=== PATIENT | male | born 1975 | race Caucasian/White ===

== ENCOUNTER 2020-01-23 21:52 | Emergency (ER) | payer OTHER ==
[2020-01-23 22:00] VITALS: BP 164/92
--- NOTE | 2020-01-23 22:11 | ED Physician Documentation ---
PD HPI GI BLEED - Stated complaint Stated Complaint: BLOOD IN STOOL - Chief complaint Chief Complaint: Abd Pain - History obtained from History obtained from: Patient - History of Present Illness Timing - onset: Last night Timing - details: Abrupt onset, Intermittant (episodic) Pain level max: 0 Pain level now: 0 Associated symptoms: BRBPR. No: Vomiting, Coffee ground emesis, Hematemesis, Maroon stool, Black/tarry stool, Diarrhea, Constipation, Abdominal pain, Fever, Dizzy Improved by: Other (no ameliorating factors) Worsened by: Other (no exacerbating factors) Similar symptoms before: Has not had sx before Recently seen: Not recently seen - Additional information Additional information: c/o BRBPR with small clots, episodic since last night. Denies h/o same although he has had ulcer diagnosed in the past on upper endoscopy (does not know location of ulcer, such as duodenal or stomach). Denies fever, denies any pain. Review of Systems Constitutional: denies: Fever Cardiac: reports: Reviewed and negative Respiratory: reports: Reviewed and negative GI: reports: Bloody / black stool. denies: Abdominal Pain, Abdominal Swelling, Nausea, Vomiting, Constipation, Diarrhea, Hematemesis PD PAST MEDICAL HISTORY - Past Medical History Cardiovascular: None Respiratory: None Endocrine/Autoimmune: HyPOthyroidism, Systemic lupus erythematosus GI: GERD Psych: Anxiety, Post traumatic stress disorder Musculoskeletal: Other (lupus and rheumatoid arthritis. ) - Past Surgical History Past Surgical History: Yes General: Cholecystectomy Ortho: Shoulder arthroplasty HEENT: Tonsil/Adenoidectomy - Present Medications Home Medications: Ambulatory Orders Medication Instructions Recorded Confirmed Levothyroxine [Synthroid] 25 mcg PO DAILY 04/05/15 04/05/15 Methocarbamol [Robaxin] 200 mg PO TID 04/05/15 04/05/15 Omeprazole 40 mg PO DAILY 04/05/15 04/05/15 Oxycodone HCl/Acetaminophen 2 tab PO Q4HR PRN 04/05/15 04/05/15 [Percocet 5-325 mg Tablet] Prazosin [Minipress] 1 tab PO QPM 04/05/15 04/05/15 Temazepam [Restoril] 30 mg PO QPM 04/05/15 04/05/15 - Allergies Allergies/Adverse Reactions: Allergies Allergy/AdvReac Type Severity Reaction Status Date / Time shellfish derived Allergy Itching Verified 01/23/20 21:57 - Social History Does the pt smoke?: Yes Smoking Status: Current every day smoker Does the pt drink ETOH?: Yes Does the pt have substance abuse?: No - Immunizations Immunizations are current?: Yes - POLST Patient has POLST: No PD ED PE NORMAL - Vitals Vital signs reviewed: Yes - General General: Alert and oriented X 3, No acute distress, Well developed/nourished - Cardiac Cardiac: RRR, No murmur - Respiratory Respiratory: No respiratory distress, Clear bilaterally - Abdomen Abdomen: Normal bowel sounds, Soft, Non tender, Non distended, No organomegaly - Derm Derm: Normal color, Warm and dry PD ED PE EXPANDED - Rectal Rectal: Heme Occult Pos - QC +, Normal Tone, Other (small amount gross blood). No: Mass, Hemorrhoid, Fissure Results - Vitals Vitals: Oxygen O2 Source Room air - Labs Labs: Microbiology 01/23/20 10:20 Occult Blood - Final Stool Laboratory Tests 01/23/20 01/23/20 01/23/20 22:02 22:02 22:02 WBC 7.6 RBC 5.11 Hgb 14.0 Hct 42.7 MCV 83.6 MCH 27.4 MCHC 32.8 RDW 14.7 Plt Count 308 MPV 10.0 Neut # (Auto) 3.7 Lymph # (Auto) 3.1 Angelina # (Auto) 0.5 Eos # (Auto) 0.2 Baso # (Auto) 0.1 Absolute Nucleated RBC 0.00 Nucleated RBC % 0.0 PT 12.0 INR 1.1 APTT 39.6 H Sodium 138 Potassium 3.3 L Chloride 101 Carbon Dioxide 25 Anion Gap 12.0 BUN 22 H Creatinine 1.0 Estimated GFR (MDRD) 82 L Glucose 106 H Calcium 9.3 Total Bilirubin 0.8 AST 51 H ALT 90 H Alkaline Phosphatase 63 Total Protein 8.1 Albumin 4.7 Globulin 3.4 Albumin/Globulin Ratio 1.4 Lipase 34 PD MEDICAL DECISION MAKING - ED course Complexity details: reviewed results, re-evaluated patient, considered differential, d/w patient Departure - Departure Disposition: 01 Home, Self Care Clinical Impression: Lower gastrointestinal bleeding Condition: Good Instructions: ED Hematochezia Stable Follow-Up: Guillermo Berrios MD [Primary Care Provider] - Discharge Date/Time: 01/23/20 23:40
[2020-01-23 22:35] LABS: BASOPHILS # (AUTO) 0.1 10^3/uL (0.0-0.1); BASOPHILS % (AUTO) 0.7 %; EOSINOPHILS # (AUTO) 0.2 10^3/uL (0.0-0.7); EOSINOPHILS % (AUTO) 2.1 %; LYMPHOCYTES # (AUTO) 3.1 10^3/uL (1.5-3.5); LYMPHOCYTES % (AUTO) 40.8 %; MEAN CORPUSCULAR HEMOGLOBIN 27.4 pg (27.0-31.0); MEAN CORPUSCULAR HGB CONC 32.8 g/dL (32.0-36.0); MEAN CORPUSCULAR VOLUME 83.6 fL (80.0-94.0); MONOCYTES # (AUTO) 0.5 10^3/uL (0.0-1.0); MONOCYTES % (AUTO) 6.9 %; NEUTROPHILS # (AUTO) 3.7 10^3/uL (1.5-6.6); NEUTROPHILS % (AUTO) 49.1 %; PLT - PLATELET COUNT 308 10^3/uL (130-450); RED BLOOD COUNT 5.11 10^6/uL (4.70-6.10); RED CELL DISTRIBUTION WIDTH 14.7 % (12.0-15.0); WHITE BLOOD COUNT 7.6 x10^3/uL (4.8-10.8)
[2020-01-23 22:41] LABS: INR 1.1 (0.8-1.2)
[2020-01-23 22:45] LABS: ALBUMIN 4.7 g/dL (3.2-5.5); ALBUMIN/GLOBULIN RATIO 1.4 (1.0-2.2); BILIRUBIN,TOTAL 0.8 mg/dL (0.2-1.0); CALCIUM 9.3 mg/dL (8.5-10.3); TOTAL PROTEIN 8.1 g/dL (6.7-8.2)
[2020-01-23 22:48] LABS: PARTIAL THROMBOPLASTIN TIME 39.6 secs (24.9-33.3)
== END 2020-01-23 23:40 | disposition home or self-care (01) ==
LOC: ED 21:52
DX: K92.1 Melena (principal); Z87.11 Personal history of peptic ulcer disease; M32.9 Systemic lupus erythematosus, unspecified; F17.200 Nicotine dependence, unspecified, uncomplicated
CPT/HCPCS: 36415; 80053; 82272; 83690; 85025; 85610; 85730; 99283; 99284

== ENCOUNTER 2020-12-30 07:24 | Outpatient (CLI) | payer OTHER ==
--- NOTE | 2020-12-30 13:15 | Ultrasound Report ---
PROCEDURE: Abdomen Limited INDICATIONS: ALT (SGPT) LEVEL RAISED TECHNIQUE: Real-time focused scanning was performed of the abdomen, with image documentation. COMPARISON: CT abdomen and pelvis dated 03/31/2020 FINDINGS: Limited evaluation of the proximal pancreas is grossly unremarkable. The liver is diffusely echogenic and enlarged measuring 22.7 cm in length. No focal abnormality. The gallbladder is not seen, likely surgically absent. The biliary system is nondilated. The common bile duct measures 6 mm. IMPRESSION: Findings of hepatomegaly and diffuse increased echogenicity suggestive of hepatic steatosis. Status post cholecystectomy. Reviewed by: Alexis Espino DO on 12/30/2020 12:13 PM YARA Approved by: Alexis Espino DO on 12/30/2020 12:13 PM YARA Station ID: [id number]
== END 2020-12-30 07:25 | disposition home or self-care (01) ==
LOC: DI 07:24
PROVIDERS: ATTEND Nurse Practitioner Family
DX: R16.0 Hepatomegaly, not elsewhere classified (principal); R93.2 Abnormal findings on diagnostic imaging of liver and biliary tract; Z90.49 Acquired absence of other specified parts of digestive tract

== ENCOUNTER 2020-12-30 07:29 | Outpatient (CLI) | payer OTHER ==
--- NOTE | 2021-01-07 15:27 | CT Report ---
PROCEDURE: LOWER EXTREMITY WO - LT INDICATIONS: LT KNEE PAIN TECHNIQUE: Noncontrast 3 mm axial sections acquired of the knee, with coronal and sagittal reformats. COMPARISON: None. FINDINGS: Image quality: Excellent. Bones: There is no fracture. Alignment is normal. Joint spaces are maintained. There are no suspicio us osseous lesions. Soft tissues: Trace joint effusion. No focal soft tissue abnormality. IMPRESSION: Trace joint effusion otherwise unremarkable CT of the knee without acute findings to explain patient' s symptoms. Reviewed by: Alexis Espino DO on 12/30/2020 12:18 PM YARA Approved by: Alexis Espino DO on 12/30/2020 12:18 PM YARA Station ID: [id number]
== END 2020-12-30 07:30 | disposition home or self-care (01) ==
LOC: DI 07:29
PROVIDERS: ATTEND Nurse Practitioner Family
DX: M25.462 Effusion, left knee (principal)

== ENCOUNTER 2020-12-30 07:31 | Outpatient (CLI) | payer OTHER ==
--- NOTE | 2020-12-30 13:17 | XRAY Report ---
PROCEDURE: Knee 3 View LT INDICATIONS: PAIN IN LEFT KNEE TECHNIQUE: 3 views of the left knee(s) were acquired. COMPARISON: None. FINDINGS: Bones: No fractures or dislocations. No suspicious bony lesions. Soft tissues: Trace small joint effusion. IMPRESSION: Trace joint effusion without evidence of an acute osseous abnormality. Reviewed by: Alexis Espino DO on 12/30/2020 12:16 PM YARA Approved by: Alexis Espino DO on 12/30/2020 12:16 PM YARA Station ID: [id number]
== END 2020-12-30 07:32 | disposition home or self-care (01) ==
LOC: DI 07:31
PROVIDERS: ATTEND Nurse Practitioner Family
DX: M25.462 Effusion, left knee (principal); R16.0 Hepatomegaly, not elsewhere classified; R93.2 Abnormal findings on diagnostic imaging of liver and biliary tract; Z90.49 Acquired absence of other specified parts of digestive tract

== ENCOUNTER 2021-04-21 09:48 | Outpatient (CLI) | payer OTHER ==
[2021-04-21 10:19] LABS: CHOL/HDL RATIO 5.4 (<5.0); CHOLESTEROL 166 mg/dL; HDL CHOLESTEROL 31 mg/dL; TRIGLYCERIDES 409 mg/dL
[2021-04-21 10:51] LABS: LDL CHOLESTEROL,DIRECT 66 mg/dL; LDLD/HDL RATIO 2.1 (<3.6)
== END 2021-04-21 09:49 | disposition home or self-care (01) ==
LOC: LAB 09:48
PROVIDERS: ATTEND Family Medicine
DX: E78.5 Hyperlipidemia, unspecified (principal)
CPT/HCPCS: 36415; 80061; 83721

== ENCOUNTER 2021-05-01 18:16 | Outpatient (CLI) | payer OTHER ==
[2021-05-01 18:39] LABS: BASOPHILS # (AUTO) 0.1 10^3/uL (0.0-0.1); BASOPHILS % (AUTO) 0.7 %; EOSINOPHILS # (AUTO) 0.1 10^3/uL (0.0-0.7); EOSINOPHILS % (AUTO) 1.7 %; HCT - HEMATOCRIT 44.7 % (42.0-52.0); HGB - HEMOGLOBIN 14.4 g/dL (14.0-18.0); LYMPHOCYTES # (AUTO) 2.6 10^3/uL (1.5-3.5); LYMPHOCYTES % (AUTO) 38.3 %; MEAN CORPUSCULAR HEMOGLOBIN 27.2 pg (27.0-31.0); MEAN CORPUSCULAR HGB CONC 32.2 g/dL (32.0-36.0); MEAN CORPUSCULAR VOLUME 84.5 fL (80.0-94.0); MEAN PLATELET VOLUME 10.2 fL (7.4-11.4); MONOCYTES # (AUTO) 0.4 10^3/uL (0.0-1.0); MONOCYTES % (AUTO) 6.4 %; NEUTROPHILS # (AUTO) 3.6 10^3/uL (1.5-6.6); NEUTROPHILS % (AUTO) 52.6 %; PLT - PLATELET COUNT 269 10^3/uL (130-450); RED BLOOD COUNT 5.29 10^6/uL (4.70-6.10); RED CELL DISTRIBUTION WIDTH 14.7 % (12.0-15.0); WHITE BLOOD COUNT 6.9 x10^3/uL (4.8-10.8)
[2021-05-01 19:08] LABS: CREATININE,URINE 89.6 mg/dL; MICROALBUM/CREATININE RATIO,UR 2.2 ug/mg (<30.0); MICROALBUMIN,URINE 0.2 mg/dL (0-300.0)
[2021-05-01 19:11] LABS: ALBUMIN 4.4 g/dL (3.2-5.5); ALBUMIN/GLOBULIN RATIO 1.5 (1.0-2.2); BILIRUBIN,TOTAL 0.6 mg/dL (0.2-1.0); CALCIUM 9.3 mg/dL (8.5-10.3); CREATININE 1.2 mg/dL (0.6-1.2); CRP - C-REACTIVE PROTEIN 2.2 mg/dL (0-1.0); POTASSIUM 3.5 mmol/L (3.5-5.0); TOTAL PROTEIN 7.3 g/dL (6.7-8.2)
[2021-05-01 19:23] LABS: THYROID STIMULATING HORMONE 2.83 uIU/mL (0.34-5.60)
[2021-05-01 20:44] LABS: ESTIMATED AVERAGE GLUCOSE 148 mg/dL (70-100); HEMOGLOBIN A1c% 6.8 % (4.27-6.07)
[2021-05-05 20:46] LABS: ANA PATTERN Nuclear, Nucleolar; ANA SCREEN POSITIVE (NEGATIVE)
== END 2021-05-01 18:17 | disposition home or self-care (01) ==
LOC: LAB 18:16
PROVIDERS: ATTEND Nurse Practitioner Family
DX: M54.5 Low back pain (principal); E55.9 Vitamin D deficiency, unspecified; M06.9 Rheumatoid arthritis, unspecified; I10 Essential (primary) hypertension; E03.9 Hypothyroidism, unspecified; E11.8 Type 2 diabetes mellitus with unspecified complications
CPT/HCPCS: 36415; 80053; 82043; 82306; 82570; 83036; 84443; 85025; 85651; 86038; 86140; 86200; 86812

== ENCOUNTER 2021-05-09 18:04 | Outpatient (CLI) | payer OTHER ==
--- NOTE | 2021-05-10 11:57 | XRAY Report ---
PROCEDURE: ThoracoLumbar 2 View INDICATIONS: CHRONIC BACK PAIN TECHNIQUE: 2 views acquired of the thoracolumbar spine. COMPARISON: None FINDINGS: Bones: No acute fractures or dislocations. Visualized inferior ribs appear intact. No suspicious b betty lesions. Minimal scattered degenerative change. Soft tissues: No suspicious soft tissue calcifications. Cholecystectomy clips. IMPRESSION: Minimal scattered degenerative change. Reviewed by: Ashley Kelly MD on 05/10/2021 11:56 AM PDT Approved by: Ashley Kelly MD on 05/10/2021 11:56 AM PDT Station ID: [id number]
--- NOTE | 2021-05-10 11:58 | XRAY Report ---
PROCEDURE: Lumbar Spine 2 View INDICATIONS: CHRONIC LOW BACK PAIN TECHNIQUE: 2 views of the lumbar spine were acquired. COMPARISON: None. FINDINGS: Bones: 5 [id number] vertebrae are present. There is multilevel trace retrolisthesis. There is moderate disc and foraminal narrowing noted at L5-S1. No vertebral body compression fractures. No vargas spicious bony lesions. Soft tissues: Overlying bowel gas pattern is normal. No suspicious soft tissue calcifications. IMPRESSION: Degenerative changes most notable at L5-S1. As clinically indicated, for further evaluat ion of foraminal narrowing or potential nerve root compression, MRI is recommended. Reviewed by: Ashley Kelly MD on 05/10/2021 11:56 AM PDT Approved by: Ashley Kelly MD on 05/10/2021 11:56 AM PDT Station ID: [id number]
== END 2021-05-09 18:05 | disposition home or self-care (01) ==
LOC: DI 18:04
PROVIDERS: ATTEND Nurse Practitioner Family
DX: M47.817 Spondylosis without myelopathy or radiculopathy, lumbosacral region (principal); M47.815 Spondylosis without myelopathy or radiculopathy, thoracolumbar region

== ENCOUNTER 2021-06-03 09:15 | Outpatient (CLI) | payer OTHER ==
--- NOTE | 2021-06-03 12:29 | MRI Report ---
PROCEDURE: Lumbar Spine W/O INDICATIONS: LOW BACK PAIN TECHNIQUE: Noncontrast sagittal T1 spin echo and T2 fast echo, sagittal STIR, axial T1 and T2 fast spin echo thr ough the lumbar spine. In cases with scoliosis, additional coronal T2 fast spin echo may be performe d. COMPARISON: None. FINDINGS: Image quality: Excellent. Alignment and Curvature: There is normal bony alignment. Bone Marrow: Marrow is of normal overall signal. No acute vertebral body compression fractures. Sc hmorl's node of the inferior endplate of T10. Spinal Cord: Conus medullaris terminates at the T12-L1 level. Visualized cord demonstrates normal s ignal and size. Paraspinous Soft Tissues: No paravertebral masses. T12-L1: Normal in appearance. L1-L2: Normal in appearance. L2-L3: Normal in appearance. L3-L4: Normal in appearance. L4-L5: Mild desiccation and diffuse bulge of the L4-5 disc. Mild bilateral foraminal stenosis. The central canal is patent. L5-S1: Normal in appearance. IMPRESSION: 1. Mild degenerative disc disease of L4-5 with a diffuse disc bulge causing mild bilateral foraminal stenosis. 2. Otherwise the remaining lumbar spine has no significant abnormality. Reviewed by: Amos Moon on 06/03/2021 12:28 PM PDT Approved by: Amos Moon on 06/03/2021 12:28 PM PDT Station ID: [id number]
== END 2021-06-03 09:16 | disposition home or self-care (01) ==
LOC: DI 09:15
PROVIDERS: ATTEND Nurse Practitioner Family
DX: M51.36 Other intervertebral disc degeneration, lumbar region (principal); M48.061 Spinal stenosis, lumbar region without neurogenic claudication

== ENCOUNTER 2021-07-12 10:18 | Outpatient (CLI) | payer OTHER ==
[2021-07-12 11:14] LABS: BASOPHILS # (AUTO) 0.1 10^3/uL (0.0-0.1); BASOPHILS % (AUTO) 0.9 %; EOSINOPHILS # (AUTO) 0.2 10^3/uL (0.0-0.7); EOSINOPHILS % (AUTO) 2.8 %; HGB - HEMOGLOBIN 15.2 g/dL (14.0-18.0); LYMPHOCYTES % (AUTO) 30.9 %; MEAN CORPUSCULAR HEMOGLOBIN 26.7 pg (27.0-31.0); MEAN CORPUSCULAR HGB CONC 32.3 g/dL (32.0-36.0); MEAN CORPUSCULAR VOLUME 82.6 fL (80.0-94.0); MEAN PLATELET VOLUME 9.5 fL (7.4-11.4); MONOCYTES # (AUTO) 0.4 10^3/uL (0.0-1.0); MONOCYTES % (AUTO) 6.2 %; NEUTROPHILS # (AUTO) 3.8 10^3/uL (1.5-6.6); NEUTROPHILS % (AUTO) 58.7 %; PLT - PLATELET COUNT 265 10^3/uL (130-450); RED BLOOD COUNT 5.69 10^6/uL (4.70-6.10); RED CELL DISTRIBUTION WIDTH 15.1 % (12.0-15.0); WHITE BLOOD COUNT 6.4 x10^3/uL (4.8-10.8)
[2021-07-12 11:31] LABS: ALBUMIN 4.7 g/dL (3.2-5.5); ALBUMIN/GLOBULIN RATIO 1.5 (1.0-2.2); BILIRUBIN,TOTAL 0.8 mg/dL (0.2-1.0); CALCIUM 9.5 mg/dL (8.5-10.3); CREATININE 1.1 mg/dL (0.6-1.2); CRP - C-REACTIVE PROTEIN 1.4 mg/dL (0-1.0); POTASSIUM 4.1 mmol/L (3.5-5.0); TOTAL PROTEIN 7.9 g/dL (6.7-8.2)
[2021-07-12 16:08] LABS: RHEUMATOID FACTOR NEGATIVE (Negative)
[2021-07-13 09:16] LABS: HEPATITIS B CORE AB TOTAL NON-REACTIVE (NON-REACTIVE); HEPATITIS C ANTIBODY NON-REACTIVE (NON-REACTIVE)
[2021-07-15 09:32] LABS: ANA SCREEN NEGATIVE (NEGATIVE)
[2021-07-15 14:12] LABS: NIL 0.03 IU/mL; TB2-NIL 0.02 IU/mL
[2021-07-16 18:42] LABS: CYCLIC CITRULL PEPTIDE CCP IGG <16 UNITS
== END 2021-07-12 10:19 | disposition home or self-care (01) ==
LOC: LAB 10:18
PROVIDERS: ATTEND Internal Medicine Rheumatology
DX: G89.29 Other chronic pain (principal); Z87.39 Personal history of other diseases of the musculoskeletal system and connective tissue; M79.641 Pain in right hand; M79.642 Pain in left hand; M79.671 Pain in right foot; M79.672 Pain in left foot; M54.50 Low back pain, unspecified
CPT/HCPCS: 36415; 80053; 81599; 85025; 85651; 86021; 86038; 86140; 86200; 86317; 86430; 86480; 86704; 86707; 86803; 86812

== ENCOUNTER 2021-08-05 12:31 | Outpatient (CLI) | payer OTHER ==
--- NOTE | 2021-08-05 14:52 | Ultrasound Report ---
PROCEDURE: Testicle INDICATIONS: TESTICULAR MASS TECHNIQUE: Real-time scanning was performed of the scrotum and testicles, with image documentation. Color and p ulse Doppler interrogation was performed of both testicles. COMPARISON: None. FINDINGS: Right: Testicle is normal in size at 4.3 x 2.5 x 3.3 cm, and homogenous in echotexture. Epididymis is normal in overall size and morphology. There is a small hydrocele. No varicocele. Overlying scrot al skin is normal in thickness. Small 2 mm epididymal head cysts. Left: Testicle is normal in size at cm, and homogeneous in echotexture. Epididymis is normal in overall size and morphology. There is a small hydrocele. No varicocele. Overlying scrotal skin is no rmal in thickness. Small 2 mm epididymal head cysts. Doppler: Color and pulse Doppler demonstrate normal and symmetric arterial flow in both testicles. IMPRESSION: 1. No testicular mass. 2. Small bilateral hydroceles and epididymal head cysts. Reviewed by: Amos Moon on 08/05/2021 1:51 PM MIGUEL ANGEL Approved by: Amos Moon on 08/05/2021 1:51 PM [facility] Station ID: [id number]
== END 2021-08-05 12:32 | disposition home or self-care (01) ==
LOC: DI 12:31
PROVIDERS: ATTEND Nurse Practitioner Family
DX: N43.3 Hydrocele, unspecified (principal); N50.3 Cyst of epididymis

== ENCOUNTER 2021-08-12 12:30 | Outpatient (CLI) | payer OTHER ==
[2021-08-12 22:24] LABS: ESTIMATED AVERAGE GLUCOSE 146 mg/dL (70-100); HEMOGLOBIN A1c% 6.7 % (4.27-6.07)
== END 2021-08-12 12:31 | disposition home or self-care (01) ==
LOC: LAB 12:30
PROVIDERS: ATTEND Nurse Practitioner Family
DX: E11.8 Type 2 diabetes mellitus with unspecified complications (principal)
CPT/HCPCS: 36415; 83036

== ENCOUNTER 2022-01-23 21:04 | Outpatient (CLI) | payer OTHER ==
--- NOTE | 2022-01-24 09:32 | XRAY Report ---
PROCEDURE: Cervical Spine 2 View INDICATIONS: NECK PAIN TECHNIQUE: 3 view(s) of the cervical spine were acquired. COMPARISON: None. FINDINGS: Bones: No fractures or dislocations to the T1 level. The lateral masses of C1 appear intact on the odontoid view. No suspicious bony lesions. Straightening of cervical lordosis. No significant spond ylitic changes. Soft tissues: No prevertebral soft tissue swelling. IMPRESSION: Cervical spine without acute fracture or traumatic malalignment. Straightening of cervic al lordosis may be related to patient positioning and/or concurrent muscle spasms. Reviewed by: Romain Vann MD on 01/24/2022 9:30 AM PDT Approved by: Romain Vann MD on 01/24/2022 9:30 AM PDT Station ID: [id number]
== END 2022-01-23 21:05 | disposition home or self-care (01) ==
LOC: DI 21:04
PROVIDERS: ATTEND Nurse Practitioner Family
DX: M54.2 Cervicalgia (principal)

== ENCOUNTER 2022-03-03 06:25 | Outpatient (CLI) | payer OTHER ==
[2022-03-03 06:59] LABS: ALBUMIN 4.5 g/dL (3.2-5.5); ALBUMIN/GLOBULIN RATIO 1.6 (1.0-2.2); BILIRUBIN,TOTAL 0.4 mg/dL (0.2-1.0); CALCIUM 10.1 mg/dL (8.5-10.3); CREATININE 1.2 mg/dL (0.6-1.2); POTASSIUM 4.2 mmol/L (3.5-5.0); TOTAL PROTEIN 7.4 g/dL (6.7-8.2)
[2022-03-03 07:09] LABS: CREATININE,URINE 101.4 mg/dL; MICROALBUM/CREATININE RATIO,UR 3.9 ug/mg (<30.0); MICROALBUMIN,URINE 0.4 mg/dL (0-300.0)
[2022-03-03 07:16] LABS: THYROID STIMULATING HORMONE 11.04 uIU/mL (0.34-5.60)
[2022-03-03] MEDS ORDERED: GADOBUTROL 15 MMOL/15 ML VIAL ONE (07:17)
[2022-03-03 07:53] LABS: FREE T4 (FREE THYROXINE) 0.89 ng/dL (0.58-1.64)
[2022-03-03] MEDS ORDERED: GADOBUTROL 15 MMOL/15 ML VIAL IVP ONE (11:25)
[2022-03-03 14:33] LABS: ESTIMATED AVERAGE GLUCOSE 160 mg/dL (70-100); HEMOGLOBIN A1c% 7.2 % (4.27-6.07)
--- NOTE | 2022-03-03 15:38 | MRI Report ---
PROCEDURE: Pelvis W/WO INDICATIONS: SACROILITIS CONTRAST: IV CONTRAST: Gadavist ml: 11.7 TECHNIQUE: Noncontrast axial and coronal T1 spin echo and STIR through the bilateral sacroiliac joints. After IV infusion of gadolinium contrast, axial and coronal T1 spin echo with fat saturation through the sacr oiliac joints were also obtained. COMPARISON: None. FINDINGS: Image quality: Excellent. Bones and joints: There is mild bilateral sacroiliac joint space narrowing and adjacent subchondral s clerosis slightly worse on the right side. No bony erosion or ankylosis is seen. No marrow edema. No area of abnormal contrast enhancement is noted no other area of abnormal marrow signal. Mild bilatera l hip joint osteoarthritis is seen with superior joint space narrowing and subchondral sclerosis. No evidence of avascular necrosis of femoral head. Soft tissues: Mild bilateral distal gluteus medius and minimus tendinosis at their insertion on great er trochanter is seen. No area of abnormal contrast enhancement. No presacral masses. Rectum appears normal in caliber and wall thickness. No pathologic free pelvic fluid. No visualized adenopathy by size criteria. IMPRESSION: 1. Mild osteoarthritis involving bilateral sacroiliac joints slightly worse on the right side. No mar row edema. No ankylosis or bony erosion. 2. Mild bilateral hip joint osteoarthritis. No evidence of avascular necrosis of femoral head. 3. Mild bilateral distal gluteus medius and minimus tendinosis. No presacral soft tissue abnormality. No other muscle or tendon signal abnormality. No pelvic free fluid. Reviewed by: Mohinder Potter MD on 03/03/2022 3:37 PM PDT Approved by: Mohinder Potter MD on 03/03/2022 3:37 PM PDT Station ID: [id number]
== END 2022-03-03 06:26 | disposition home or self-care (01) ==
LOC: LAB 06:25
PROVIDERS: ATTEND Nurse Practitioner Family
DX: M54.50 Low back pain, unspecified (principal); E11.8 Type 2 diabetes mellitus with unspecified complications; E03.9 Hypothyroidism, unspecified; Z87.39 Personal history of other diseases of the musculoskeletal system and connective tissue; G89.29 Other chronic pain; M47.818 Spondylosis without myelopathy or radiculopathy, sacral and sacrococcygeal region; M16.0 Bilateral primary osteoarthritis of hip; M67.854 Other specified disorders of tendon, left hip; M67.853 Other specified disorders of tendon, right hip
CPT/HCPCS: 36415; 72197; 80053; 82043; 82570; 83036; 84439; 84443; A9585

== ENCOUNTER 2022-05-26 08:06 | Outpatient (CLI) | payer OTHER ==
--- NOTE | 2022-05-26 16:45 | MRI Report ---
PROCEDURE: Cervical Spine W/O INDICATIONS: NECK PAIN TECHNIQUE: Noncontrast sagittal T1 spin echo and T2 fast spin echo, sagittal STIR, foraminal oblique sagittal T2 fast spin echo, and axial gradient echo or T2 fast spin echo through the cervical spine. COMPARISON: None. FINDINGS: Image quality: Excellent. Alignment and Curvature: There is normal bony alignment. Bone Marrow: Marrow demonstrates normal overall signal. Spinal Cord: Visualized spinal cord has normal size and signal. No cerebellar tonsillar herniation. Regional Soft Tissues: Prevertebral and paraspinous soft tissues are normal. Degenerative changes: Facet and uncovertebral hypertrophy combine to produce mild neural foraminal na rrowing on the left at C3-C4, C4-C5 and C5-C6. No neural foraminal narrowing otherwise. No spinal can al stenosis at any level in the cervical spine. IMPRESSION: Mild left neural foraminal narrowing from C3-C4 through C5-C6. Otherwise unremarkable MRI of the cervical spine. Reviewed by: Dylan Becker MD on 05/26/2022 4:44 PM PDT Approved by: Dylan Becker MD on 05/26/2022 4:44 PM PDT Station ID: [id number]
== END 2022-05-26 08:07 | disposition home or self-care (01) ==
LOC: DI 08:06
PROVIDERS: ATTEND Nurse Practitioner Family
DX: M47.812 Spondylosis without myelopathy or radiculopathy, cervical region (principal)

== ENCOUNTER 2022-12-17 18:10 | Outpatient (CLI) | payer OTHER ==
--- NOTE | 2022-12-18 11:01 | Ultrasound Report ---
PROCEDURE: Abdomen Limited INDICATIONS: ELEVATED LIVER ENZYMES TECHNIQUE: Real-time focused scanning was performed of the abdomen, with image documentation. COMPARISONS: None. FINDINGS: Liver: Increased liver echogenicity, commonly mild hepatic steatosis. Gallbladder: Absent. Biliary ducts: Intrahepatic bile ducts are non-dilated. Extrahepatic bile duct caliber measures 3 m m. Normal is 6-7 mm or less in diameter, or 10 mm or less post-cholecystectomy. Pancreas: Pancreas is obscured by overlying bowel gas. Right kidney: Normal in size and echotexture. Right kidney measures 10.4 cm long. No hydronephrosis or nephrolithiasis. No solid masses. No complex renal cystic lesions which require follow-up. Miscellaneous: No free abdominal fluid. IMPRESSION: Diffusely increased hepatic echotexture likely representing hepatic steatosis. No focal intrahepatic lesions identified. Limited evaluation of the pancreas secondary to overlying bowel gas. Reviewed by: Romain Vann MD on 12/18/2022 11:00 AM PDT Approved by: Romain Vann MD on 12/18/2022 11:00 AM PDT Station ID: [id number]
== END 2022-12-17 18:11 | disposition home or self-care (01) ==
LOC: DI 18:10
PROVIDERS: ATTEND Internal Medicine
DX: Z87.39 Personal history of other diseases of the musculoskeletal system and connective tissue (principal); M54.50 Low back pain, unspecified; G89.29 Other chronic pain

== ENCOUNTER 2023-02-23 07:50 | Outpatient (CLI) | payer OTHER ==
--- NOTE | 2023-02-23 10:52 | Ultrasound Report ---
PROCEDURE: Abdomen Limited INDICATIONS: FATTY LIVER TECHNIQUE: Real-time focused scanning was performed of the abdomen, with image documentation. COMPARISONS: None. FINDINGS: Liver: Increased liver echogenicity, with posterior attenuation, most consistent with moderate to se hannah hepatic steatosis. Gallbladder: Cholelithiasis without wall thickening. Biliary ducts: Intrahepatic bile ducts are non-dilated. Extrahepatic bile duct caliber measures 5.5 mm. Normal is 6-7 mm or less in diameter, or 10 mm or less post-cholecystectomy. Pancreas: Visualized portions of the pancreas are sonographically normal. Right kidney: Normal in size and echotexture. Right kidney measures 11.9 cm long. No hydronephrosis or nephrolithiasis. No solid masses. No complex renal cystic lesions which require follow-up. IMPRESSION: Moderate to severe hepatic steatosis. In the absence of alcohol use or other confounding factors, enriqueta vated LFTs may indicate nonalcoholic steatohepatitis (PEDRAZA). Reviewed by: Kieran Pa on 02/23/2023 10:50 AM PDT Approved by: Kieran Pa on 02/23/2023 10:50 AM PDT Station ID: [id number]
== END 2023-02-23 07:51 | disposition home or self-care (01) ==
LOC: DI 07:50
PROVIDERS: ATTEND Internal Medicine Gastroenterology
DX: K76.0 Fatty (change of) liver, not elsewhere classified (principal)

== ENCOUNTER 2023-03-02 10:26 | Outpatient (CLI) | payer OTHER ==
--- NOTE | 2023-03-02 14:09 | Ultrasound Report ---
PROCEDURE: Testicle w/Doppler INDICATIONS: B/L INGUINAL HERNIA AND TESTICULAR PAIN TECHNIQUE: Real-time scanning was performed of the scrotum and testicles, with image documentation. Color and p ulse Doppler interrogation was performed of both testicles. COMPARISON: None. FINDINGS: Right: Testicle is normal in size at 4.1 x 3.0 x 2.7 cm, and homogenous in echotexture. Epididymis is normal in overall size and morphology. No varicoceles. Small right hydrocele. Overlying scrotal s kin is normal in thickness. Left: Testicle is normal in size at 4.1 x 2.9 x 2.1 cm, and homogeneous in echotexture. Epididymis is normal in overall size and morphology. No varicoceles. Small left hydrocele. Overlying scrotal s kin is normal in thickness. Doppler: Color and pulse Doppler demonstrate normal and symmetric arterial flow in both testicles. IMPRESSION: Normal sonographic evaluation of the bilateral testicles and epididymides. Bilateral hydroceles. Reviewed by: Romain Vann MD on 03/02/2023 1:08 PM YARA Approved by: Romain Vann MD on 03/02/2023 1:08 PM YARA Station ID: [id number]
--- NOTE | 2023-03-02 15:06 | Ultrasound Report ---
PROCEDURE: Pelvic Limited or F/U INDICATIONS: BILATERAL INGUINAL HERNIA AND TESTICULAR PAIN TECHNIQUE: Real-time transabdominal scanning was performed of the pelvic organs, with image documentation. COMPARISON: None. FINDINGS: No inguinal hernia is seen bilaterally. IMPRESSION: No inguinal hernia is seen bilaterally. Reviewed by: Flynn Garcia MD on 03/02/2023 3:05 PM PDT Approved by: Flynn Garcia MD on 03/02/2023 3:05 PM PDT Station ID: [id number]
== END 2023-03-02 10:27 | disposition home or self-care (01) ==
LOC: DI 10:26
PROVIDERS: ATTEND Family Medicine
DX: K40.21 Bilateral inguinal hernia, without obstruction or gangrene, recurrent (principal); N43.3 Hydrocele, unspecified
CPT/HCPCS: 93975